=== PATIENT | male | born 1990 | race Caucasian/White ===

== ENCOUNTER 2017-04-26 06:04 | Day surgery (SDC) | payer OTHER ==
[2017-04-18 14:59] VITALS: BMI 30.7
[2017-04-26] MEDS ORDERED: BUPIVACAINE HCL/PF 0.5% (5MG/ML) 10 ML VIAL ONE (07:25)
[2017-04-26] MEDS ORDERED: MIDAZOLAM HCL 2 MG/2 ML SINGLE DOSE VIAL ONE (07:49)
[2017-04-26] MEDS ORDERED: SUCCINYLCHOLINE CHLORIDE 200 MG/10 ML VIAL ONE (07:49)
[2017-04-26] MEDS ORDERED: LIDOCAINE HCL/PF 2% SDV 5ML VIAL ONE (07:49)
[2017-04-26] MEDS ORDERED: PROPOFOL 20 ML ONE ×3 (07:49→08:21)
--- NOTE | 2017-04-26 08:08 | HP ---
[facility]ellite [facility] - Chief Complaint Chief Complaint: right knee pain - Past Medical History Allergies/Adverse Reactions: Allergies Allergy/AdvReac Type Severity Reaction Status Date / Time No Known Allergies Allergy Verified 04/18/17 14:54 - Current Medications Current Medications: Home Medications Medication Instructions Recorded Oxycodone HCl/Acetaminophen 1 - 2 tab PO Q6H #50 tab MDD 8 04/26/17 [Percocet 5-325 mg Tablet -] Satellite Physical Exam - Physical Examination Vital Signs: Vital Signs Period Temp Pulse Resp BP Sys/Mathews Pulse Ox Last 24 Hr 97.9 F 54 20 107/54 98 General Appearance: Well Nourished, Well Developed, Alert & Oriented x3 ENT: Clear Lung: Normal air movement Heart: Regular rate & rhythm Extremities: Other (right knee- + swelling, + ttp, decr rom, + mcmurrays, + apleys, nvi MRI + lmt) Neurological: Intact, Alert, Oriented Satellite Impression/Plan - Impression/Plan Impression: right knee internal derangement Operative Procedure: right knee arthroscopy Date to be Performed: 04/26/17
[2017-04-26] MEDS ORDERED: DEXAMETHASONE SOD PHOSPHATE 4 MG/1 ML VIAL ONE (08:24)
[2017-04-26] MEDS ORDERED: LIDOCAINE 1%/EPI 1:100000 (50 ML MULTI DOSE VIAL) INF ONE (08:33)
--- NOTE | 2017-04-26 08:49 | OP ---
Operative Note - Note: Operative Date: 04/26/17 ([facility]) Pre-Operative Diagnosis: right knee lmt Operation: right knee arthroscopy with PLM Post-Operative Diagnosis: Same as Pre-op Surgeon: Blue Lemus Anesthesiologist/LEGAL COMPLIANCE OFFICER: Alexandra Lindsey Anesthesia: General, Local Specimens Removed: shavings Estimated Blood Loss (mls): 5 Operative Report Dictated: Yes
--- NOTE | 2017-04-26 09:43 | OP ---
DATE OF OPERATION: 04/26/2017 PREOPERATIVE DIAGNOSIS: Right lateral meniscus tear. POSTOPERATIVE DIAGNOSIS: Right lateral meniscus tear. PROCEDURE: Arthroscopy, right knee partial lateral meniscectomy. SURGICAL ATTENDING: Blue Lemus MD ANESTHESIA: LMA. CLOSURE: 4-0 nylon. COMPLICATIONS: None. CONDITION: To recovery room in stable condition. DESCRIPTION OF PROCEDURE: The patient was taken to the operating room on April 26, 2017. General anesthesia with LMA was administered by the anesthesiologist. The right lower extremity was prepped and draped in the usual sterile fashion. A superolateral, medial and lateral infrapatellar portal sites were infiltrated with 1% Xylocaine with epinephrine. Superolateral portal was made using a No. 15 blade followed by a blunt trocar. The knee was aspirated and inflated with a cocktail of 10 mL of 1% Xylocaine, 10 mL of 0.5% Marcaine, 20 mL of arthroscopic saline. The medial and lateral infrapatellar portals were then made using a No. 15 blade followed by a blunt trocar. The scope was placed in the lateral infrapatellar portal and up into the suprapatellar pouch. The pouch was visualized to be clean. The medial and lateral gutters were visualized to be clean. The undersurface of the patella and trochlea were visualized to be intact. With valgus stress on the knee, the medial compartment was entered. The medial meniscus was visualized and probed, and found to be intact. The medial femoral condyle was run and found to be intact, as was the medial tibial plateau. At 90 degrees, the ACL was visualized and probed and found to be intact. In the figure-of-4 position, the lateral compartment was entered. The lateral meniscus was found to have a flap tear as well as a horizontal cleavage tear of the lateral meniscus. This was debrided back to smooth stable meniscal tissues using meniscal biter and arthroscopic shaver. The lateral femoral condyle was run and found to be intact, as was the lateral tibial plateau. The knee was irrigated with copious amounts of irrigation. Portals were closed with 4-0 nylon. Prior to closure, 20 mL of 0.5% Marcaine was infused postoperative analgesia. Sterile pressure dressing was placed over the knee. Patient awakened from anesthesia and transferred to recovery in stable condition. No complications. Estimated blood loss negligible. Kelvin PONCE/[id number]
[2017-04-26] MEDS ORDERED: ONDANSETRON 4 MG/2 ML VIAL IVPUSH PRN (10:55)
[2017-04-26] MEDS ORDERED: oxyCODONE HCL 5 MG TABLET PO PRN (10:55)
[2017-04-26] MEDS ORDERED: LACTATED RINGERS SOLUTION 1,000 ML IV SCH (11:00)
[2017-04-26 12:13] VITALS: BP 114/66; PULSE 52; TEMP 97.8
--- NOTE | 2017-04-27 14:22 | PATH ---
Surgical Pathology Report Patient Name: CHICHI NANCE [facility]. Rec. #: [id number] /Age/Gender: 1990 (Age: 26) / M Account: [id number] Location: [facility] SURGICAL Taken: 04/26/2017 Received: 04/26/2017 Reported: 04/27/2017 Physicians: Blue Lemus M.D. Specimen(s) Received RIGHT KNEE SHAVINGS Clinical History Meniscus tear right knee Final Diagnosis SOFT TISSUE, RIGHT KNEE, ARTHROSCOPIC SHAVINGS: SYNOVIUM AND FIBROCARTILAGE WITH MYXOHYALINE DEGENERATION. Electronically Signed Taqueria Morales M.D. Gross Description Received in formalin, labeled "right knee shavings" is a 4.0 x 2.8 x 0.4 cm aggregate of de la cruz-yellow soft tissue fragments. A insurance claims representative portion is submitted in one cassette. 04/26/201704/26/2017
== END 2017-04-26 12:15 | disposition home or self-care (01) ==
LOC: JASU-SURG 06:04
PROVIDERS: ATTEND Orthopaedic Surgery
PROC: 0SBC4ZZ Excision of Right Knee Joint, Percutaneous Endoscopic Approach (ICD-10-PCS; principal; 2017-04-26 08:00)
DX: S83.281A Other tear of lateral meniscus, current injury, right knee, initial encounter (principal); X58.XXXA Exposure to other specified factors, initial encounter; Y93.9 Activity, unspecified; Y92.9 Unspecified place or not applicable
CPT/HCPCS: 88304-TC; 94760; 97116-GP

== ENCOUNTER 2017-10-19 05:22 | Day surgery (SDC) | payer OTHER ==
[2017-10-17 14:26] VITALS: BMI 30.7
[~2017-10-19 05:22] MED LIST: BUPIVACAINE HCL/PF 0.5% (5MG/ML) 10 ML VIAL IJ ONE
--- NOTE | 2017-10-19 08:30 | HP ---
Satellite [facility] - Chief Complaint Chief Complaint: right knee pain History of Present Illness: right lc lateral meniscus tear History Source: Patient Limitations to Obtaining History: No Limitations - Past Medical History Allergies/Adverse Reactions: Allergies Allergy/AdvReac Type Severity Reaction Status Date / Time No Known Allergies Allergy Verified 10/17/17 14:20 - Current Medications Current Medications: Home Medications Medication Instructions Recorded NK [No Known Home Medication] 10/17/17 Satellite Physical Exam - Physical Examination Vital Signs: Vital Signs Period Temp Pulse Resp BP Sys/Mathews Pulse Ox Last 24 Hr 98.0 F 62 16 139/82 98 General Appearance: Well Nourished ENT: Clear Lung: Clear to auscultation Heart: Regular rate & rhythm Breasts: Soft Abdomen: Soft Extremities: No edema Satellite Impression/Plan - Impression/Plan Impression: right knee lateral meniscus tear Operative Procedure: right knee arthroscopy Date to be Performed: 10/19/17
[2017-10-19] MEDS ORDERED: MIDAZOLAM HCL 2 MG/2 ML SINGLE DOSE VIAL ONE (08:47)
[2017-10-19] MEDS ORDERED: ceFAZolin SODIUM 1 GM VIAL IVPB ONE (09:20)
[2017-10-19] MEDS ORDERED: DESFLURANE GAS 240 ML BOTTLE IH ONE (09:52)
[2017-10-19] MEDS ORDERED: BUPIVACAINE HCL/PF 0.5% (5MG/ML) 10 ML VIAL ONE (09:54)
[2017-10-19] MEDS ORDERED: oxyCODONE HCL 5 MG TABLET PO PRN (09:59)
[2017-10-19] MEDS ORDERED: LACTATED RINGERS SOLUTION 1,000 ML IV SCH (10:00)
[2017-10-19] MEDS ORDERED: BUPIVACAINE HCL/PF 0.5% (5MG/ML) 10 ML VIAL IJ ONE (10:22)
--- NOTE | 2017-10-19 10:29 | OP ---
Operative Note - Note: Operative Date: 10/19/17 Pre-Operative Diagnosis: right knee pain, lateral meniscus tear Operation: right knee arhroscopy, partial lateral meniscectomy, debridement of scar tissue Post-Operative Diagnosis: Same as Pre-op Surgeon: Tim Mensah Anesthesiologist/MACHINE PRECISION ETCHER: Fazal Callahan Anesthesia: General, Local Specimens Removed: shavings Estimated Blood Loss (mls): 0 Drains, Volume Out (mls): 0 Blood Volume Replaced (mls): 0 Fluid Volume Replaced (mls): 700 Operative Report Dictated: Yes
--- NOTE | 2017-10-19 11:10 | OP ---
DATE OF OPERATION: 10/19/2017 PREOPERATIVE DIAGNOSIS: Right knee pain, lateral meniscus tear. POSTOPERATIVE DIAGNOSIS: Right knee pain, lateral meniscus tear, plus scar tissue. PROCEDURE: Right knee arthroscopy, partial lateral meniscectomy, and debridement of scar tissue. SURGEON: Tim Marcelo MD FLUID DESIGNER: None. ANESTHESIA: , LMA anesthesia with intraarticular injection of 20 mL 0.5% Marcaine. DRAINS: None. COMPLICATIONS: None. SPECIMENS: Arthroscopic shavings. BLOOD LOSS: None. BLOOD GIVEN: None. FLUID REPLACEMENT: 500 mL INDICATION: This patient is a 27-year-old male with preoperative diagnosis of right knee pain and lateral meniscus tear. After understanding the potential risks, complications, alternatives, and benefits to surgery versus nonsurgical treatment, the patient elected to undergo this procedure. DESCRIPTION OF PROCEDURE: The patient was brought to the operating room, peripheral IV placed and IV sedation given. LMA anesthesia was induced. He was placed into the C-clamp leg mcdonald with ample padding throughout, including the styrofoam ring and Webril. The right lower extremity was prepped and draped in sterile fashion, elevated, exsanguinated with an Esmarch bandage and the tourniquet inflated to 275 mmHg. A superomedial outflow portal was established. A lateral portal was established. I could feel on entering the lateral portal there was a lot of scar tissue. A medial portal was established under direct visualization using a spinal needle and a No. 15 scalpel blade. A diagnostic arthroscopy was performed. Medially, the patient looked quite good. There was no osteoarthritis and the medial meniscus looked fine, although it was relatively thin. Photographs were taken. There was a little bit of scar tissue in the anterior aspect of the medial compartment. This was debrided. Next, the intercondylar notch looked good, but it was almost full of scar tissue. This was debrided. Once I did this I could directly visualize the ACL, which looked fine. I probed it, had the appropriate tension. Next, the lateral compartment had a tremendous amount of scar tissue on the anterior aspect of it. This was debrided just to be able to get into the lateral compartment and visualize the lateral meniscus. The lateral compartment was directly visualized. Lateral femoral condyle looked normal. The lateral tibial plateau had grade 1 chondromalacia. It looked as if he had a previous partial lateral meniscectomy. There were some mildly torn edges. These were debrided with the curved shaver. After the partial lateral meniscectomy, our attention turned to the anterior aspect of the lateral compartment where additional debridement was done of scar tissue. Next, we looked in the patellofemoral joint. That looked good. There was very mild chondromalacia of the femoral trochlea. This was debrided. In the superolateral aspect of the patellofemoral compartment there was also a lot of scar tissue. This was removed up here as well. The area was copiously irrigated and washed out. Again the lateral compartment directly visualized. Nothing else was seen. All instrumentation and debris were removed as well as excess saline. The arthroscopy portals were closed with 3-0 nylon sutures, then 20 mL 0.5% Marcaine was introduced into the joint. The area was then washed and dried, covered with Xeroform, 4 x 4 gauze, Webril, and Jason bandage. Tourniquet was taken down after total tourniquet time of 26 minutes. The patient was brought to the ambulatory recovery room in stable condition. TIM MARCELO M.D. [id number]
[2017-10-19 16:31] VITALS: TEMP 98.2
[2017-10-19 16:34] VITALS: BP 110/65; PULSE 72
--- NOTE | 2017-10-20 14:47 | PATH ---
Surgical Pathology Report Patient Name: CHICHI NANCE Med. Rec. #: [id number] /Age/Gender: 1990 (Age: 27) / M Account: [id number] Location: [facility] SURGICAL Taken: 10/19/2017 Received: 10/19/2017 Reported: 10/20/2017 Physicians: Tim Mensah M.D. Specimen(s) Received RIGHT KNEE SHAVINGS Clinical History Right knee tear Final Diagnosis KNEE, RIGHT, ARTHROSCOPIC SHAVING: FIBROCARTILAGE WITH MYXOID DEGENERATIVE CHANGES, ALONG WITH PORTIONS OF SYNOVIUM . Electronically Signed Roger Butler M.D. Gross Description Received in formalin, labeled "right knee shavings," is a 5.5 x 3.8 x 0.4 cm. aggregate of de la cruz-yellow soft tissue fragments. A inbound sales representative portion is submitted in one cassette. /10/19/201710/19/2017
== END 2017-10-19 13:00 | disposition home or self-care (01) ==
LOC: JASU-SURG 05:22
PROVIDERS: ATTEND Orthopaedic Surgery
PROC: 0SBC4ZZ Excision of Right Knee Joint, Percutaneous Endoscopic Approach (ICD-10-PCS; 2017-10-19)
PROC: 0SBC4ZZ Excision of Right Knee Joint, Percutaneous Endoscopic Approach (ICD-10-PCS; principal; 2017-10-19 09:00)
DX: M23.200 Derangement of unspecified lateral meniscus due to old tear or injury, right knee (principal); M25.561 Pain in right knee
CPT/HCPCS: 88304-TC; 97116-GP